=== PATIENT | female | born 1990 | race Hispanic/Latino ===

== ENCOUNTER 2017-11-20 13:37 | Emergency (ER) | payer SELFPAY ==
[2017-11-20 14:19] LABS: Absolute Lymphocytes (CBC) 2.5 K/uL (0.7-4.9); Absolute Monocytes 0.5 K/uL (0.1-1.3); Absolute Neutrophil 5.3 K/uL (1.8-8.0); Basophils % 0.4 % (0-1.3); Eosinophils % 0.3 % (0-4.4); Hematocrit 43.4 % (36.0-45.0); MCH 28.9 pg (27.0-35.0); MCV 87.5 fL (80-100); MPV 8.7 fL (7.6-11.3); Monocytes % 6.4 % (3.3-12.3); RBC Red Blood Cell Count 4.95 M/uL (3.86-4.86)
[2017-11-20] MEDS ORDERED: ONDANSETRON 4 MG/2 ML VIAL ONE (14:20)
[2017-11-20] MEDS ORDERED: MORPHINE 4 MG/ML SYR ONE (14:20)
[2017-11-20] MEDS ORDERED: NA CHLORIDE 0.9% 1,000 ML ONE (14:20)
[2017-11-20 14:34] LABS: BUN Blood Urea Nitrogen 8 mg/dL (7-18); Bicarbonate 25 mmol/L (21-32); Glucose Level 96 mg/dL (74-106); Potassium 3.8 mmol/L (3.5-5.1); Sodium Level 141 mmol/L (136-145)
[2017-11-20 14:42] LABS: HCG, Quantitative < 1 mIU/mL (1-3)
[2017-11-20 14:47] LABS: Protime INR 1.1
--- NOTE | 2017-11-20 17:08 | EDPHYS ---
Physician Documentation [facility] Name: Wanda Borja Age: 27 yrs Sex: Female : 1990 Arrival Date: 11/20/2017 Time: 13:40 Bed 14 Private MD: None, None ED Physician Silvio Horner HPI: 11/20 14:01 This 27 yrs old Female presents to ER via Ambulatory with complaints of rn Vaginal Bleeding. 14:01 The patient presents with vaginal bleeding that is. Onset: The symptoms/episode rn began/occurred just prior to arrival. Modifying factors: The symptoms are alleviated by nothing, the symptoms are aggravated by nothing. Severity of symptoms: At their worst the symptoms were moderate, in the emergency department the symptoms have improved. The patient has experienced a previous episode. Reports vaginal bleeding and abd cramping since this AM, reports LMP 2 months ago, cramping began this AM, bleeding began prior to arrival, reports passed large clot right now in ER bathroom. States irregular period normally but doesn't bleed this much. Reports single that resulted in miscarriage in past. . 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 - Social history:: Smoking status: Patient/guardian denies using tobacco, Patient uses alcohol, occasionally. Patient/guardian denies using street drugs. - Ebola Screening: : Patient negative for fever greater than or equal to 101.5 degrees Fahrenheit, and additional compatible Ebola Virus Disease symptoms Patient denies exposure to infectious person Patient denies travel to an Ebola-affected area in the 21 days before illness onset No symptoms or risks identified at this time. - Family history:: not pertinent. - Hospitalizations: : No recent hospitalization is reported. ROS: 14:01 Constitutional: Negative for fever, chills, and weight loss, Eyes: Negative for injury, rn pain, redness, and discharge, Cardiovascular: Negative for chest pain, palpitations, and edema, Respiratory: Negative for shortness of breath, cough, wheezing, and pleuritic chest pain, Abdomen/GI: Negative for nausea, vomiting, diarrhea, and constipation : Negative for injury, discharge, and swelling, MS/Extremity: Negative for injury and deformity, Skin: Negative for injury, rash, and discoloration, Neuro: Negative for headache, weakness, numbness, tingling, and seizure. Exam: 14:01 Constitutional: This is a well developed, well nourished patient who is awake, alert, rn appears anxious Head/Face: Normocephalic, atraumatic. Cardiovascular: Regular rate and rhythm with a normal S1 and S2. No gallops, murmurs, or rubs. Normal PMI, no JVD. No pulse deficits. Respiratory: mild hyperventilation, clear Abdomen/GI: Soft, non-tender, with normal bowel sounds. No distension or tympany. No guarding or rebound. No evidence of tenderness throughout. Skin: Warm, dry with normal turgor. Normal color with no rashes, no lesions, and no evidence of cellulitis. MS/ Extremity: Pulses equal, no cyanosis. Neurovascular intact. Full, normal range of motion. Equal circumference. Neuro: Awake and alert, GCS 15, oriented to person, place, time, and situation. Cranial nerves II-XII grossly intact. Motor strength 5/5 in all extremities. Sensory grossly intact. Cerebellar exam normal. Normal gait. Vital Signs: 13:43 BP 105 / 71; Pulse 97; Resp 22; Temp 98.2; Pulse Ox 98% on R/A; Weight 93.44 kg; Height ch 5 ft. 2 in. (157.48 cm); Pain 9/10; 14:33 BP 110 / 66; Pulse 88; Resp 18; Pulse Ox 97% on R/A; Pain 8/10; ph 15:55 BP 112 / 46; Pulse 70; Resp 18; Pulse Ox 99% on R/A; ph 17:32 BP 111 / 55; Pulse 72; Resp 18; Temp 98.0; Pulse Ox 99% on R/A; ph 13:43 Body Mass Index 37.68 (93.44 kg, 157.48 cm) ch MDM: 13:54 Patient medically screened. rn 17:05 Differential diagnosis: dysmenorrhea, menometrorrhagia, nonspecific abdominal pain, rn ovarian cyst, uterine fibroids, ovarian torsion. Data reviewed: vital signs, nurses notes, lab test result(s), radiologic studies, ultrasound, and as a result, I will discharge patient. Counseling: I had a detailed discussion with the patient and/or guardian regarding: the historical points, exam findings, and any diagnostic results supporting the discharge/admit diagnosis, lab results, radiology results, the need for outpatient follow up, to return to the emergency department if symptoms worsen or persist or if there are any questions or concerns that arise at home. Special discussion: Based on the patient's Hx, exam, and Dx evaluation, there is no indication for emergent surgery or inpatient Tx. It is understood by the patient/guardian that if the Sx's persist or worsen they need to return immediately for re-evaluation. I discussed with the patient/guardian in detail that at this point there is no indication for admission to the hospital. It is understood, however, that if the symptoms persist or worsen the patient needs to return immediately for re-evaluation. Based on the history and exam findings, there is no indication for further emergent testing or inpatient evaluation. I discussed with the patient/guardian the need to see the OB Gyne specialist for further evaluation of the symptoms. ED course: Neg , normal transvaginal u/s with possible small fibroid. Stable h/h, normal vitals, will dc home with [employer] f/u. . 11/20 13:59 Order name: Quantitative Hcg; Complete Time: 14:45 11/20 13:59 Order name: Abo/rh Typing; Complete Time: 14:45 11/20 13:59 Order name: Basic Metabolic Panel; Complete Time: 14:45 rn 11/20 13:59 Order name: CBC with Diff; Complete Time: 14:45 rn 11/20 14:01 Order name: PT-INR; Complete Time: 15:06 rn 11/20 14:01 Order name: Ptt, Activated; Complete Time: 15:06 rn 11/20 13:59 Order name: Urine Test (obtain specimen); Complete Time: 14:02 rn 11/20 13:59 Order name: IV Saline Lock; Complete Time: 14:02 11/20 14:49 Order name: ABO/RH no charge; Complete Time: 15:06 [facility] 11/20 16:22 Order name: Transvaginal Study Probe; Complete Time: 17:15 [facility] 11/20 13:59 Order name: Labs collected and sent; Complete Time: 14:02 rn 11/20 13:59 Order name: NPO; Complete Time: 14:02 rn 11/20 13:59 Order name: Urine Dipstick-Ancillary (obtain specimen); Complete Time: 14:02 rn Administered Medications: 14:27 Drug: NS 0.9% 1000 ml Route: IV; Rate: 1000 ml; Site: right antecubital; ph 17:30 Follow up: IV Status: Completed infusion ph 14:28 Drug: morphine 4 mg Route: IVP; Site: right antecubital; ph 17:30 Follow up: Response: No adverse reaction; Pain is decreased ph 14:28 Drug: Zofran 4 mg Route: IVP; Site: right antecubital; ph 17:30 Follow up: Response: No adverse reaction ph Disposition: 11/20/17 17:07 Discharged to Home. Impression: Abnormal uterine and vaginal bleeding, unspecified. - Condition is Stable. - Discharge Instructions: Abnormal Uterine Bleeding, Uterine Fibroids. - Medication Reconciliation Form, Thank You Letter, Antibiotic Education, Prescription Opioid Use, Work release form form. - Follow up: Private Physician; When: As needed; Reason: Recheck today's complaints, Re-evaluation by your physician. - Problem is new. - Symptoms have improved. Signatures: Dispatcher [employer] Giovana Osuna RN RN ch Nieto, Roman, MD MD rn Saavedra, NARAYAN Goodman RN ph Corrections: (The following items were deleted from the chart) 16:22 16:05 Pelvis Complete+US.RAD.BRZ ordered. [facility] 17:31 17:07 11/20/2017 17:07 Discharged to Home. Impression: Abnormal uterine and vaginal ph bleeding, unspecified. Condition is Stable. Forms are Medication Reconciliation Form, Thank You Letter, Antibiotic Education, Prescription Opioid Use. Follow up: Private Physician; When: As needed; Reason: Recheck today's complaints, Re-evaluation by your physician. Problem is new. Symptoms have improved. rn
--- NOTE | 2017-11-20 17:08 | ER ---
Nurse's Notes [facility] Name: Wanda Borja Age: 27 yrs Sex: Female : 1990 Arrival Date: 11/20/2017 Time: 13:40 Bed 14 Private MD: None, None Diagnosis: Abnormal uterine and vaginal bleeding, unspecified Presentation: 11/20 13:42 Presenting complaint: Patient states: vaginal bleeding started around 1315 today, and ch lots of "uterus cramps". LMP was 2 months ago, I might be but I also am very irregular. Transition of care: patient was not received from another setting of care. Onset of symptoms was November 20, 2017 at 13:15. Risk Assessment: Do you want to hurt yourself or someone else? Patient reports no desire to harm self or others. Initial Sepsis Screen: Does the patient meet any 2 criteria? No. Patient's initial sepsis screen is negative. Does the patient have a suspected source of infection? No. Patient's initial sepsis screen is negative. Care prior to arrival: None. 13:42 Method Of Arrival: Ambulatory 13:42 Acuity: INGRID 2 hb Triage Assessment: 13:43 General: Appears in no apparent distress. uncomfortable, Behavior is agitated, anxious, ch restless. Pain: Complains of pain in pelvis Pain currently is 9 out of 10 on a pain scale. : Reports vaginal bleeding that is bright red, heavy flow. 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 - Social history:: Smoking status: Patient/guardian denies using tobacco, Patient uses alcohol, occasionally. Patient/guardian denies using street drugs. - Ebola Screening: : Patient negative for fever greater than or equal to 101.5 degrees Fahrenheit, and additional compatible Ebola Virus Disease symptoms Patient denies exposure to infectious person Patient denies travel to an Ebola-affected area in the 21 days before illness onset No symptoms or risks identified at this time. - Family history:: not pertinent. - Hospitalizations: : No recent hospitalization is reported. Screenin:32 Abuse screen: Denies threats or abuse. Denies injuries from another. Nutritional ph screening: No deficits noted. Tuberculosis screening: No symptoms or risk factors identified. Fall Risk None identified. Assessment: 14:30 General: Appears in no apparent distress. uncomfortable, obese, well groomed, Behavior ph is calm, cooperative, appropriate for age, Denies fever, feeling ill. Pain: Complains of pain in suprapubic area. Neuro: Level of Consciousness is awake, alert, obeys commands, Oriented to person, place, time, situation. Cardiovascular: Capillary refill < 3 seconds in bilateral fingers Patient's skin is warm and dry. Respiratory: Airway is patent Respiratory effort is even, unlabored, Respiratory pattern is regular, symmetrical. GI: Abdomen is non-distended, obese, Bowel sounds present X 4 quads. Abd is soft X 4 quads Abdomen is tender to palpation in suprapubic area. : Urine is ricky blood, Reports pain in suprapubic area vaginal bleeding that is with clots, heavy flow Denies burning with urination, urinary frequency. Derm: Skin is intact, is healthy with good turgor, Skin is pink, warm \\T\\ dry. Musculoskeletal: Circulation, motion, and sensation intact. Range of motion: intact in all extremities. 15:55 Reassessment: Patient appears in no apparent distress at this time. Patient and/or ph family updated on plan of care and expected duration. Pain level reassessed. Patient is alert, oriented x 3, equal unlabored respirations, skin warm/dry/pink. Pt resting quietly, texting on cell phone, awaiting lab results. 17:29 Reassessment: Patient appears in no apparent distress at this time. Patient and/or ph family updated on plan of care and expected duration. Pain level reassessed. Patient is alert, oriented x 3, equal unlabored respirations, skin warm/dry/pink. Pt d/c home w/ family. Vital Signs: 13:43 BP 105 / 71; Pulse 97; Resp 22; Temp 98.2; Pulse Ox 98% on R/A; Weight 93.44 kg; Height ch 5 ft. 2 in. (157.48 cm); Pain 9/10; 14:33 BP 110 / 66; Pulse 88; Resp 18; Pulse Ox 97% on R/A; Pain 8/10; ph 15:55 BP 112 / 46; Pulse 70; Resp 18; Pulse Ox 99% on R/A; ph 17:32 BP 111 / 55; Pulse 72; Resp 18; Temp 98.0; Pulse Ox 99% on R/A; ph 13:43 Body Mass Index 37.68 (93.44 kg, 157.48 cm) ED Course: 13:40 Patient arrived in ED. mr 13:40 None, None is Private Physician. mr 13:43 Triage completed. ch 13:43 Arm band placed on left wrist. Patient placed in an exam room, on a stretcher. ch 13:45 Maxine Saavedra, RN is Primary Nurse. ph 13:54 Silvio Horner MD is Attending Physician. rn 14:15 Initial lab(s) drawn, by me, sent to lab. Urine collected: clean catch specimen, ricky ph blood. Inserted saline lock: 18 gauge in right antecubital area, using aseptic technique. Blood collected. 14:32 Patient has correct armband on for positive identification. Placed in gown. Bed in low ph position. Side rails up X2. Pulse ox on. NIBP on. Warm blanket given. 16:48 Transvaginal Study Probe In Process Unspecified. EDMS 17:30 No provider procedures requiring assistance completed. IV discontinued, intact, ph bleeding controlled, No redness/swelling at site. Pressure dressing applied. Administered Medications: 14:27 Drug: NS 0.9% 1000 ml Route: IV; Rate: 1000 ml; Site: right antecubital; ph 17:30 Follow up: IV Status: Completed infusion ph 14:28 Drug: morphine 4 mg Route: IVP; Site: right antecubital; ph 17:30 Follow up: Response: No adverse reaction; Pain is decreased ph 14:28 Drug: Zofran 4 mg Route: IVP; Site: right antecubital; ph 17:30 Follow up: Response: No adverse reaction ph Outcome: 17:07 Discharge ordered by . rn 17:31 Discharged to home ambulatory, with family. ph 17:31 Condition: good 17:31 Discharge instructions given to patient, Instructed on discharge instructions, follow up and referral plans. Demonstrated understanding of instructions, follow-up care. 17:31 Patient left the ED. ph Signatures: Dispatcher [employer] EDMS Giovana Galeano, RN RN Mason, Dodie vanegas Silvio Horner MD MD rn Hall, Patricia, RN RN Samantha Nunn RN RN hb Corrections: (The following items were deleted from the chart) 13:48 13:42 Acuity: INGRID 3 hb
--- NOTE | 2017-11-20 17:11 | RAD REPORT ---
EXAM DESCRIPTION: US - Transvaginal Study Probe - 11/20/2017 4:47 pm CLINICAL HISTORY: Ovarian torsion Pelvic pain. COMPARISON: No comparisons FINDINGS: The uterus is normal in size, shape and echotexture. The uterus measures 7.3 x 4.2 x 3.8 c m. Posterior midbody demonstrates a 0.8 x 0.7 x 0.7 mm fibroid abutting the endometrium. The endometrial stripe measures 6 mm, normal. Both ovaries are normal in size, shape and echotexture. The right ovary measures 2.9 x 2.1 x 1.7 cm. The left ovary measures 3.0 x 2.8 x 2.8 cm. No ovarian or parovarian lesions. No adnexal masses. Normal Doppler blood flow was demonstrated to both ovaries. No significant pelvic ascites. IMPRESSION: Small posterior midbody fibroid abutting the endometrium.
== END 2017-11-20 17:31 | disposition home or self-care (01) ==
LOC: ER 13:37
DX: N93.9 Abnormal uterine and vaginal bleeding, unspecified (principal)
CPT/HCPCS: 36415; 76830; 80048; 84702; 85025; 85610; 85730; 86900; 86901; 96361; 96374; 96375; 99284; J2405; J7030

== ENCOUNTER 2018-05-12 23:45 | Emergency (ER) | payer SELFPAY ==
--- NOTE | 2018-05-13 01:28 | ER ---
Nurse's Notes [facility] Name: Wanda Borja Age: 28 yrs Sex: Female : 1990 Arrival Date: 05/12/2018 Time: 23:50 Bed 19 Private MD: Diagnosis: Acute pharyngitis;Otitis media, unspecified, right ear Presentation: 05/13 00:14 Presenting complaint: Patient states: Reports she has been having cough, congestion, ea pain with cough for one week. Pt reports she started having body aches, chills, n/v/d, earache and shortness of breath with exertion today. Pt reports she took Tylenol 2 1/2 hours ago due to fever. Transition of care: patient was not received from another setting of care. Onset of symptoms was May 13, 2018. Risk Assessment: Do you want to hurt yourself or someone else? Patient reports no desire to harm self or others. Initial Sepsis Screen: Does the patient meet any 2 criteria? No. Patient's initial sepsis screen is negative. Does the patient have a suspected source of infection? Yes: Productive cough/pneumonia. Care prior to arrival: Medication(s) given: Tylenol. 00:14 Method Of Arrival: Ambulatory ea 00:14 Acuity: INGRID 3 ea Triage Assessment: 00:38 General: Appears in no apparent distress. comfortable, Behavior is calm, cooperative, cc3 appropriate for age. Pain: Complains of pain in right ear pain. EENT: Reports pain in right ear. Neuro: Level of Consciousness is awake, alert, obeys commands, Oriented to person, place, time, situation, Appropriate for age. Cardiovascular: Denies chest pain, Patient's skin is warm and dry. Respiratory: Airway is patent Respiratory effort is even, unlabored, Respiratory pattern is regular, symmetrical. GI: Abdomen is round obese. : No signs and/or symptoms were reported regarding the genitourinary system. Derm: No signs and/or symptoms reported regarding the dermatologic system. Musculoskeletal: Circulation, motion, and sensation intact. Range of motion: intact in all extremities. 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 - Social history:: Smoking status: Patient/guardian denies using tobacco. - Ebola Screening: : No symptoms or risks identified at this time. Screenin:18 Abuse screen: Denies threats or abuse. Nutritional screening: No deficits noted. ea Tuberculosis screening: No symptoms or risk factors identified. Fall Risk None identified. Assessment: 00:38 General: see triage assessment. cc3 01:30 Reassessment: Patient appears in no apparent distress at this time. Patient and/or cc3 family updated on plan of care and expected duration. Pain level reassessed. Patient is alert, oriented x 3, equal unlabored respirations, skin warm/dry/pink. JASMYNE Bacon discharged the patient home with prescription given. No IV cannula in situ. Patient left ER vitally stable and ambulatory with her family. Vital Signs: 00:17 BP 110 / 59; Pulse 81; Resp 18; Temp 98.3(O); Pulse Ox 97% on R/A; Weight 110.68 kg; ea Height 5 ft. 2 in. (157.48 cm); Pain 6/10; 01:12 BP 112 / 57; Pulse 83; Resp 16 S; Pulse Ox 98% on R/A; cc3 00:17 Body Mass Index 44.63 (110.68 kg, 157.48 cm) ea ED Course: 05/12 23:50 Patient arrived in ED. es [id number] 00:17 Triage completed. ea 00:18 Arm band placed on right wrist. Patient placed in waiting room. ea 00:31 Jack Bacon NP is PHCP. pm1 00:31 Jorge Benítez MD is Attending Physician. pm1 00:38 Maira Mathis is Primary Nurse. cc3 00:38 Patient has correct armband on for positive identification. Bed in low position. Call cc3 light in reach. Side rails up X 1. Pulse ox on. NIBP on. 00:43 X-ray completed. Portable x-ray completed in exam room. Patient tolerated procedure kw well. 00:45 Chest Single View XRAY In Process Unspecified. EDMS 01:30 No provider procedures requiring assistance completed. Patient did not have IV access cc3 during this emergency room visit. Administered Medications: No medications were administered Outcome: 01:27 Discharge ordered by . pm1 01:30 Discharged to home ambulatory, with family. cc3 01:30 Condition: stable 01:30 Discharge instructions given to patient, Instructed on discharge instructions, follow up and referral plans. medication usage, Demonstrated understanding of instructions, follow-up care, medications, Prescriptions given X 1. 01:38 Patient left the ED. cc3 Signatures: Dispatcher [employer] EDVirginia Rand Kimberlee kw Marinas, Patrick, JASMYNE INSPECTOR REPAIRER pm1 Karime Martinez, RN RN Maira Carlos cc3
--- NOTE | 2018-05-13 01:28 | EDPHYS ---
Physician Documentation [facility] Name: Wanda Borja Age: 28 yrs Sex: Female : 1990 Arrival Date: 05/12/2018 Time: 23:50 Bed 19 Private MD: ED Physician Jorge Benítez HPI: 05/13 01:00 This 28 yrs old Female presents to ER via Ambulatory with complaints of Ear pm1 Pain, Fever, Sore throat and cough. 01:00 The patient presents with sore throat. The patient describes throat pain as scratchy. pm1 Onset: The symptoms/episode began/occurred 1 week(s) ago. Severity of symptoms: in the emergency department the symptoms are actually worse. Modifying factors: The symptoms are alleviated by nothing, the symptoms are aggravated by swallowing, Patient's oral intake status: good. Associated signs and symptoms: Pertinent positives: chills, cough, diarrhea, flu-like symptoms, shortness of breath vomiting. The patient has not experienced similar symptoms in the past. The patient has not recently seen a physician. 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 - Social history:: Smoking status: Patient/guardian denies using tobacco. - Ebola Screening: : No symptoms or risks identified at this time. ROS: 01:00 Eyes: Negative for injury, pain, redness, and discharge. pm1 01:00 Neck: Negative for injury, pain, and swelling, Cardiovascular: Negative for chest pain, palpitations, and edema. 01:00 Back: Negative for injury and pain, : Negative for injury, bleeding, discharge, and swelling. 01:00 MS/Extremity: Negative for injury and deformity, Skin: Negative for injury, rash, and discoloration, Neuro: Negative for headache, weakness, numbness, tingling, and seizure. 01:00 Constitutional: Positive for body aches, chills, fever. 01:00 ENT: Positive for ear pain, sore throat. 01:00 Respiratory: Positive for cough, shortness of breath. 01:00 Abdomen/GI: Positive for vomiting, diarrhea, Negative for abdominal pain. Exam: 01:00 Constitutional: This is a well developed, well nourished patient who is awake, alert, pm1 and in no acute distress. Head/Face: Normocephalic, atraumatic. Eyes: Pupils equal round and reactive to light, extra-ocular motions intact. Lids and lashes normal. Conjunctiva and sclera are non-icteric and not injected. Cornea within normal limits. Periorbital areas with no swelling, redness, or edema. 01:00 Neck: Trachea midline, no thyromegaly or masses palpated, and no cervical lymphadenopathy. Supple, full range of motion without nuchal rigidity, or vertebral point tenderness. No Meningismus. Chest/axilla: Normal chest wall appearance and motion. Nontender with no deformity. No lesions are appreciated. Cardiovascular: Regular rate and rhythm with a normal S1 and S2. No gallops, murmurs, or rubs. Normal PMI, no JVD. No pulse deficits. Respiratory: Lungs have equal breath sounds bilaterally, clear to auscultation and percussion. No rales, rhonchi or wheezes noted. No increased work of breathing, no retractions or nasal flaring. Abdomen/GI: Soft, non-tender, with normal bowel sounds. No distension or tympany. No guarding or rebound. No evidence of tenderness throughout. Back: No spinal tenderness. No costovertebral tenderness. Full range of motion. Skin: Warm, dry with normal turgor. Normal color with no rashes, no lesions, and no evidence of cellulitis. MS/ Extremity: Pulses equal, no cyanosis. Neurovascular intact. Full, normal range of motion. 01:00 ENT: External ear(s): are unremarkable, Ear canal(s): are normal, TM's: bulging, on the right, erythema, that is mild, on the right, Examination of the other ear shows no obvious abnormality, Nose: no acute changes, Mouth: no acute changes, Posterior pharynx: Airway: normal, no evidence of obstruction, patent, Tonsils: bilaterally enlarged, with erythema, no exudate, no ulcerations, peritonsillar mass, is not appreciated. 01:00 Neuro: Orientation: is normal, Motor: moves all fours, Gait: is steady, at a normal pace, without difficulty. Vital Signs: 00:17 BP 110 / 59; Pulse 81; Resp 18; Temp 98.3(O); Pulse Ox 97% on R/A; Weight 110.68 kg; ea Height 5 ft. 2 in. (157.48 cm); Pain 6/10; 01:12 BP 112 / 57; Pulse 83; Resp 16 S; Pulse Ox 98% on R/A; cc3 00:17 Body Mass Index 44.63 (110.68 kg, 157.48 cm) ea MDM: 00:31 Patient medically screened. pm1 01:26 Data reviewed: vital signs. Data interpreted: Pulse oximetry: on room air is 97 %. pm1 Interpretation: normal. Counseling: I had a detailed discussion with the patient and/or guardian regarding: lab results, radiology results. 05/13 00:06 Order name: Flu; Complete Time: 00:52 05/13 00:06 Order name: Strep; Complete Time: 00:52 05/13 00:08 Order name: Chest Single View XRAY 05/13 00:47 Order name: Throat Culture EDMS Administered Medications: No medications were administered Disposition: 05/13/18 01:27 Discharged to Home. Impression: Acute pharyngitis, Otitis media, unspecified, right ear. - Condition is Stable. - Discharge Instructions: Otitis Media, Adult, Pharyngitis. - Prescriptions for Augmentin 875- 125 mg Oral Tablet - take 1 tablet by ORAL route every 12 hours for 10 days; 20 tablet. - Medication Reconciliation Form, Thank You Letter, Antibiotic Education, Prescription Opioid Use, Work release form form. - Follow up: Emergency Department; When: As needed; Reason: Worsening of condition. Follow up: Private Physician; When: 2 - 3 days; Reason: Recheck today's complaints, Continuance of care, Re-evaluation by your physician. - Problem is new. - Symptoms have improved. Signatures: Dispatcher [employer] EDMS Jack Bacon NP SUPERVISORY HISTORIAN pm1 Karime Martinez, NARAYAN RN Maira Carlos cc3 Corrections: (The following items were deleted from the chart) 01:38 01:27 05/13/2018 01:27 Discharged to Home. Impression: Acute pharyngitis; Otitis media, cc3 unspecified, right ear. Condition is Stable. Forms are Medication Reconciliation Form, Thank You Letter, Antibiotic Education, Prescription Opioid Use. Follow up: Emergency Department; When: As needed; Reason: Worsening of condition. Follow up: Private Physician; When: 2 - 3 days; Reason: Recheck today's complaints, Continuance of care, Re-evaluation by your physician. Problem is new. Symptoms have improved. pm1
--- NOTE | 2018-05-13 08:18 | RAD REPORT ---
EXAM DESCRIPTION: RAD - Chest Single View - 05/13/2018 12:45 am CLINICAL HISTORY: Cough and congestion, painful cough COMPARISON: None. TECHNIQUE: AP portable chest image was obtained 0028 hours . FINDINGS: Lungs are clear. Heart and vasculature are normal. No measurable pleural effusion and no p neumothorax. No acute bony abnormality seen. No acute aortic findings suspected. IMPRESSION: No acute cardiopulmonary process.
== END 2018-05-13 01:38 | disposition home or self-care (01) ==
LOC: ER 23:45
DX: H66.91 Otitis media, unspecified, right ear (principal)
CPT/HCPCS: 71045; 87070; 87081; 87804; 99283